=== PATIENT | female | born 1980 | race Caucasian/White ===

== ENCOUNTER 2020-03-27 23:35 | Emergency (ER) | payer SELFPAY ==
[~2020-03-27] VITALS: Ht 162.6 cm; Wt 54.4 kg
[2020-03-27 23:40] VITALS: BP_SYST 119
[2020-03-28 00:18] LABS: BILIRUBIN,URINE NEGATIVE (NEGATIVE); BLOOD, URINE NEGATIVE (NEGATIVE); CLARITY/URINE TURBID (CLEAR); COLOR,URINE ORANGE (YELLOW); GLUCOSE,URINE NEGATIVE (NEGATIVE); KETONES,URINE TRACE (NEGATIVE); LEUKOCYTE ESTERASE ,URINE TRACE (NEGATIVE); NITRITE, URINE POSITIVE (NEGATIVE); PH,URINE 6.5 (5.0-8.0); PROTEIN URINE 1+ (NEGATIVE)
[2020-03-28 00:26] LABS: BACTERIA,URINE MANY /HPF (None Seen); MUCUS,URINE 1+ /LPF (None Seen)
[2020-03-28] MEDS ORDERED: CEPHALEXIN 500 MG CAPSULE PO ONE (01:30)
[2020-03-28 01:31] VITALS: BP_SYST 121
== END 2020-03-28 01:31 | disposition home or self-care (01) ==
LOC: SED 23:35
DX: N39.0 Urinary tract infection, site not specified (principal)
CPT/HCPCS: 81000-TC; 81025; 87086; 99283

== ENCOUNTER 2020-08-26 10:16 | Emergency (ER) | payer SELFPAY ==
[~2020-08-26] VITALS: Ht 160 cm; Wt 59.9 kg
--- NOTE | 2020-08-26 10:30 | NUR ---
Patient triaged and placed in waiting room. VSS and patient appears in no acute distress at this time. Accompanied by self, awaiting available bed, and MD notified of need for MSE.
--- NOTE | 2020-08-26 10:32 | NUR ---
Pt brought by self, A&Ox4, pt presents to ER with upper back pain and L flank pain , skin pink and warm, cap refill <3, VSS
--- NOTE | 2020-08-26 10:55 | NUR ---
Dr Strickland evaluating patient in the tent
[2020-08-26 11:16] VITALS: BP_SYST 131
[2020-08-26 12:19] VITALS: BP_SYST 131
--- NOTE | 2020-08-26 12:19 | NUR ---
Patient given written and verbal discharge instructions and verbalizes understanding. ER MD discussed with patient the results and treatment provided. Patient in stable condition. ID arm band removed. Rx of Cephalexin and Ibuprofen given. Patient educated on pain management and to follow up with PMD. Pain Scale 3/10 tolerable for pt . Opportunity for questions provided and answered. Medication side effect fact sheet provided.
== END 2020-08-26 12:19 | disposition home or self-care (01) ==
LOC: SED 10:16
DX: N12 Tubulo-interstitial nephritis, not specified as acute or chronic (principal)
CPT/HCPCS: 71045; 81002; 81025; 99283

== ENCOUNTER 2020-11-17 14:25 | Emergency (ER) | payer SELFPAY ==
[~2020-11-17] VITALS: Ht 162.6 cm; Wt 52.2 kg
[2020-11-17 14:34] VITALS: BP_SYST 142
[2020-11-17 15:04] LABS: BILIRUBIN,URINE NEGATIVE (NEGATIVE); BLOOD, URINE NEGATIVE (NEGATIVE); CLARITY/URINE CLOUDY (CLEAR); COLOR,URINE YELLOW (YELLOW); GLUCOSE,URINE NEGATIVE (NEGATIVE); KETONES,URINE NEGATIVE (NEGATIVE); LEUKOCYTE ESTERASE ,URINE 1+ (NEGATIVE); NITRITE, URINE NEGATIVE (NEGATIVE); PROTEIN URINE 1+ (NEGATIVE); UROBILINOGEN,URINE 0.2 (0.2-1.0)
[2020-11-17 15:41] LABS: RBC,URINE NONE SEEN /HPF (0-3)
[2020-11-17 15:42] LABS: BACTERIA,URINE MANY /HPF (None Seen); WBC,URINE >100 /HPF (0-3)
[2020-11-17 15:44] LABS: YEAST,URINE None Seen /HPF (None Seen)
[2020-11-17] MEDS ORDERED: cephALEXin 500 MG CAPSULE PO ONE (16:00)
[2020-11-17] MEDS ORDERED: CEPH500C2 PO (16:04)
[2020-11-17 16:13] VITALS: BP_SYST 142
== END 2020-11-17 16:13 | disposition home or self-care (01) ==
LOC: SED 14:25
DX: N39.0 Urinary tract infection, site not specified (principal); F17.200 Nicotine dependence, unspecified, uncomplicated
CPT/HCPCS: 81000-TC; 87086; 99283

== ENCOUNTER 2021-07-18 20:27 | Emergency (ER) | payer OTHER, SELFPAY ==
[~2021-07-18] VITALS: Ht 162.6 cm; Wt 49.9 kg
[~2021-07-18 20:27] MED LIST: CEPH-548 PO
[2021-07-18 20:36] VITALS: BP_SYST 113
--- NOTE | 2021-07-18 21:06 | NUR ---
Note mindy in ED - 07/18/21 at 2110 by [id number] Patient to bed 7 to [facility] for evaluation. Side rails up.
--- NOTE | 2021-07-18 21:08 | NUR ---
Patient to ER bed 7 to gown for evaluation. Side rails up. Report given to Gayle MANSFIELD.
--- NOTE | 2021-07-18 21:09 | NUR ---
Patient BIB by family from home. C/O right flank pain x today. Patient reported, had right flank pain since 0400 AM today , chills and fever. A/O,X4, right flank pain, pain rate 9/10. radiate to right lower abdominal .
--- NOTE | 2021-07-18 22:05 | NUR ---
ER Dr. Macias at bedside examining patient.
[2021-07-18] MEDS ORDERED: ONDANSETRON HCL 4 MG/2 ML VIAL IVP ONE (22:15)
[2021-07-18] MEDS ORDERED: NACL 0.9% 1,000 ML IV ONE (22:15)
[2021-07-18] MEDS ORDERED: MORPHINE 4 MG INJ. 4 MG/ML VIAL IVP ONE (22:15)
--- NOTE | 2021-07-18 22:20 | NUR ---
# 20 gauge angiocath placed to LAC. Use of asceptic technique. Opsite placed over site. Blood return noted. Blood for lab drawn from site. Flushed with 10 cc of normal saline. No evidence of infiltration noted. Patient tolerated well.
[2021-07-18 22:49] LABS: BASOPHILS % (AUTO) 0.1 % (0.0-2.0); HEMATOCRIT 31.9 % (36-48); HEMOGLOBIN 10.5 g/dL (12.0-16.0); LYMPHOCYTES # (AUTO) 0.2 K/uL (1.0-5.5); LYMPHOCYTES % (AUTO) 3.3 % (20.5-51.5); MEAN CORPUSCULAR HEMOGLOBIN 25 pg (27-31); MEAN CORPUSCULAR HGB CONC 33 % (32-36); MEAN CORPUSCULAR VOLUME 77 fL (79.0-98.0); MONOCYTES # (AUTO) 0.1 K/uL (0.0-1.0); MONOCYTES % (AUTO) 1.3 % (1.7-9.3); NEUTROPHILS # (AUTO) 4.5 K/uL (1.8-7.7); NEUTROPHILS % (AUTO) 95.3 % (40.0-70.0); PLATELET COUNT (AUTO) 242 K/uL (130-430); RED BLOOD CELL COUNT(AUTO) 4.14 MIL/uL (4.2-6.2); RED CELL DISTRIBUTION WIDTH 15.4 % (9.0-15.0); WHITE BLOOD COUNT (AUTO) 4.7 K/uL (4.8-10.8)
[2021-07-18 22:51] LABS: CREATININE 0.81 mg/dL (0.55-1.30)
[2021-07-18 22:57] LABS: ALBUMIN 3.5 g/dL (3.4-4.8); TOTAL BILIRUBIN 0.5 mg/dL (0.0-1.0)
--- NOTE | 2021-07-18 23:22 | NUR ---
Returned from radiology, back to [facility].
--- NOTE | 2021-07-19 00:12 | NUR ---
COVID-19 swabs collected and sent to lab.
[2021-07-19] MEDS ORDERED: POTASSIUM CHLORIDE 20 MEQ/PKT PACKET PO ONE (00:15)
[2021-07-19 01:09] LABS: BILIRUBIN,URINE NEGATIVE (NEGATIVE); BLOOD, URINE NEGATIVE (NEGATIVE); COLOR,URINE YELLOW (YELLOW); GLUCOSE,URINE NEGATIVE (NEGATIVE); KETONES,URINE TRACE (NEGATIVE); LEUKOCYTE ESTERASE ,URINE 1+ (NEGATIVE); NITRITE, URINE NEGATIVE (NEGATIVE); PROTEIN URINE 1+ (NEGATIVE); UROBILINOGEN,URINE 0.2 (0.2-1.0)
--- NOTE | 2021-07-19 01:15 | NUR ---
Patient resting quietly. No acute distress noted. Vital signs within normal range.
[2021-07-19 01:20] LABS: CLARITY/URINE SLIGHTLY CLOUDY (CLEAR)
[2021-07-19 01:24] LABS: BACTERIA,URINE FEW /HPF (None Seen)
[2021-07-19] MEDS ORDERED: CEPH-548 PO (01:40)
[2021-07-19] MEDS ORDERED: ONDA-8 TL (01:41)
[2021-07-19] MEDS ORDERED: cephALEXin 500 MG CAPSULE PO ONE (01:45)
[2021-07-19 01:55] VITALS: BP_SYST 113
--- NOTE | 2021-07-19 01:55 | NUR ---
Patient given written and verbal discharge instructions and verbalizes understanding. ER MD discussed with patient the results and treatment provided. Patient in stable condition. ID arm band removed. IV catheter removed intact and dressing applied, no active bleeding. Rx of Zofran and Cephalexin given. Patient educated on pain management and to follow up with PMD. Pain Scale 1/10. Opportunity for questions provided and answered. Medication side effect fact sheet provided.
== END 2021-07-19 01:55 | disposition home or self-care (01) ==
LOC: SED 20:27
DX: N39.0 Urinary tract infection, site not specified (principal); R10.9 Unspecified abdominal pain; E87.6 Hypokalemia; M43.06 Spondylolysis, lumbar region; Z79.899 Other long term (current) drug therapy; Z20.822 Contact with and (suspected) exposure to COVID-19
CPT/HCPCS: 36415; 74176; 76376; 80053; 81000; 81025; 83690; 85025; 87086; 87426; 96361; 96374; 96375; 99284; J2270; J2405; J7030

== ENCOUNTER 2022-09-12 00:27 | Emergency (ER) | payer OTHER ==
[~2022-09-12] VITALS: Ht 162.6 cm; Wt 59.0 kg
[~2022-09-12 00:27] MED LIST changes: +ONDA-8 TL
--- NOTE | 2022-09-12 00:50 | NUR ---
Patient triaged and placed in ED RM 5. VSS and patient appears in no acute distress at this time. MD Troncoso notified of need for MSE. Report given to DONAL Flores.
--- NOTE | 2022-09-12 01:06 | NUR ---
PT BIBS FROM HOME WITH C/O LEFT FLANK PAIN ASSOCIATED WITH LOWER ABD CRAMPING + FOUL ODOR; DENIES VAGINAL DISCHARGE, N/V, FEVER, DYSURIA. URINE COLLECTED AND SENT TO LAB.
[2022-09-12 01:11] LABS: BILIRUBIN,URINE NEGATIVE (NEGATIVE); BLOOD, URINE NEGATIVE (NEGATIVE); CLARITY/URINE CLEAR (CLEAR); COLOR,URINE YELLOW (YELLOW); GLUCOSE,URINE NEGATIVE (NEGATIVE); KETONES,URINE NEGATIVE (NEGATIVE); LEUKOCYTE ESTERASE ,URINE NEGATIVE (NEGATIVE); NITRITE, URINE NEGATIVE (NEGATIVE); PROTEIN URINE NEGATIVE (NEGATIVE); UROBILINOGEN,URINE 0.2 (0.2-1.0)
[2022-09-12 02:38] LABS: BASOPHILS # (AUTO) 0.1 K/uL (0.0-0.2); BASOPHILS % (AUTO) 0.7 % (0.0-2.0); EOSINOPHILS # (AUTO) 0.1 K/uL (0.0-0.4); EOSINOPHILS % (AUTO) 1.3 % (0.0-4.0); HEMATOCRIT 34.9 % (36-48); LYMPHOCYTES # (AUTO) 1.9 K/uL (1.0-5.5); LYMPHOCYTES % (AUTO) 24.7 % (20.5-51.5); MEAN CORPUSCULAR HEMOGLOBIN 23 pg (27-31); MEAN CORPUSCULAR HGB CONC 31 % (32-36); MEAN CORPUSCULAR VOLUME 72 fL (79.0-98.0); MONOCYTES # (AUTO) 0.4 K/uL (0.0-1.0); MONOCYTES % (AUTO) 4.9 % (1.7-9.3); NEUTROPHILS # (AUTO) 5.2 K/uL (1.8-7.7); NEUTROPHILS % (AUTO) 68.4 % (40.0-70.0); PLATELET COUNT (AUTO) 357 K/uL (130-430); RED BLOOD CELL COUNT(AUTO) 4.84 MIL/uL (4.2-6.2); RED CELL DISTRIBUTION WIDTH 18.6 % (9.0-15.0); WHITE BLOOD COUNT (AUTO) 7.7 K/uL (4.8-10.8)
[2022-09-12 02:40] LABS: CALCIUM 9.7 mg/dL (8.4-11.0); CREATININE 0.62 mg/dL (0.55-1.30)
[2022-09-12 02:45] LABS: ALBUMIN 4.2 g/dL (3.4-4.8); TOTAL BILIRUBIN 0.3 mg/dL (0.0-1.0)
--- NOTE | 2022-09-12 03:32 | NUR ---
PATIENT TAKEN TO RADIOLOGY
[2022-09-12 04:05] LABS: HCG,QUAL RESULT NEGATIVE (NEGATIVE)
[2022-09-12] MEDS ORDERED: MILK OF MAGNESIA 30 ML UDC ONE (04:10)
[2022-09-12] MEDS ORDERED: MILK OF MAGNESIA 30 ML UDC PO ONE ×2 (04:15→04:30)
[2022-09-12] MEDS ORDERED: DOCU-144 PO (04:19)
[2022-09-12] MEDS ORDERED: POLY119P2 PO (04:19)
--- NOTE | 2022-09-12 04:40 | NUR ---
Patient given written and verbal discharge instructions and verbalizes understanding. ER MD discussed with patient the results and treatment provided. Patient in stable condition. ID arm band removed. Rx of COLACE & MIRALAX given. Patient educated on pain management and to follow up with PMD. Pain Scale 0/10. Opportunity for questions provided and answered. Medication side effect fact sheet provided.
[2022-09-12 04:41] VITALS: BP_SYST 132
== END 2022-09-12 04:40 | disposition home or self-care (01) ==
LOC: SED 00:27
DX: K59.00 Constipation, unspecified (principal); F17.200 Nicotine dependence, unspecified, uncomplicated; R10.31 Right lower quadrant pain; Z79.899 Other long term (current) drug therapy
CPT/HCPCS: 36415; 74021; 80053; 81003; 81025; 84703; 85025; 99284

== ENCOUNTER 2023-09-06 17:22 | Emergency (ER) | payer OTHER ==
[~2023-09-06] VITALS: Ht 162.6 cm; Wt 56.7 kg
[2023-09-06 17:22] VITALS: BP_SYST 124; PULSE 109; RESP 18; TEMP 98.4; O2SAT 100
[~2023-09-06 17:22] MED LIST changes: +DOCU-144 PO; +POLY119P2 PO
[2023-09-06 18:38] LABS: BASOPHILS % (AUTO) 0.6 % (0.0-2.0); EOSINOPHILS # (AUTO) 0.1 K/uL (0.0-0.4); EOSINOPHILS % (AUTO) 1.5 % (0.0-4.0); HEMATOCRIT 30.6 % (36-48); LYMPHOCYTES # (AUTO) 1.2 K/uL (1.0-5.5); MEAN CORPUSCULAR HEMOGLOBIN 24 pg (27-31); MEAN CORPUSCULAR HGB CONC 33 % (32-36); MEAN CORPUSCULAR VOLUME 73 fL (79.0-98.0); MONOCYTES # (AUTO) 0.3 K/uL (0.0-1.0); MONOCYTES % (AUTO) 4.8 % (1.7-9.3); NEUTROPHILS # (AUTO) 4.8 K/uL (1.8-7.7); NEUTROPHILS % (AUTO) 74.1 % (40.0-70.0); PLATELET COUNT (AUTO) 401 K/uL (130-430); RED BLOOD CELL COUNT(AUTO) 4.22 MIL/uL (4.2-6.2); RED CELL DISTRIBUTION WIDTH 17.2 % (9.0-15.0); WHITE BLOOD COUNT (AUTO) 6.5 K/uL (4.8-10.8)
[2023-09-06 18:42] LABS: CREATININE 0.85 mg/dL (0.55-1.30)
[2023-09-06 18:48] LABS: ALBUMIN 3.8 g/dL (3.4-4.8); TOTAL BILIRUBIN 0.3 mg/dL (0.0-1.0); TOTAL PROTEIN, SERUM 7.5 g/dL (6.4-8.3)
[2023-09-06 19:56] LABS: ANISOCYTOSIS 1+; HYPOCHROMASIA 2+; OVALOCYTES MODERATE
[2023-09-06 20:42] LABS: BILIRUBIN,URINE NEGATIVE (NEGATIVE); BLOOD, URINE NEGATIVE (NEGATIVE); COLOR,URINE YELLOW (YELLOW); GLUCOSE,URINE NEGATIVE (NEGATIVE); KETONES,URINE TRACE (NEGATIVE); LEUKOCYTE ESTERASE ,URINE 1+ (NEGATIVE); NITRITE, URINE POSITIVE (NEGATIVE); PH,URINE 6.5 (5.0-8.0); PROTEIN URINE TRACE (NEGATIVE)
[2023-09-06 20:46] LABS: CLARITY/URINE HAZY (CLEAR)
[2023-09-06 21:24] LABS: BACTERIA,URINE MANY /HPF (None Seen); RBC,URINE 0-3 /HPF (0-3)
[2023-09-06] MEDS ORDERED: KETOROLAC TROMETHAMINE 30 MG VIAL IM ONE (22:15)
[2023-09-06] MEDS ORDERED: cephALEXin 500 MG CAPSULE PO ONE (22:15)
[2023-09-06] MEDS ORDERED: IBUP-1969 PO (22:17)
[2023-09-06] MEDS ORDERED: PHEN-890 PO (22:17)
[2023-09-06] MEDS ORDERED: CEPH-548 PO (22:17)
[2023-09-06] MEDS ORDERED: ACET-2634 PO (22:17)
[2023-09-06 22:56] VITALS: BP_SYST 125; PULSE 92; RESP 20; TEMP 98.2; O2SAT 100
== END 2023-09-06 22:56 | disposition home or self-care (01) ==
LOC: SED 17:22
DX: N39.0 Urinary tract infection, site not specified (principal); R10.2 Pelvic and perineal pain; D64.9 Anemia, unspecified; R11.0 Nausea; R30.0 Dysuria; I10 Essential (primary) hypertension; Z79.899 Other long term (current) drug therapy
CPT/HCPCS: 99284; 76856; 80053; 81001; 83690; 85025; 87086; 36415; 81025; 81000; 81015; J1885

== ENCOUNTER 2024-03-27 02:41 | Emergency (ER) | payer SELFPAY ==
[~2024-03-27] VITALS: Ht 162.6 cm; Wt 56.7 kg
[~2024-03-27 02:41] MED LIST changes: +ACET-2634 PO; +IBUP-1969 PO; +PHEN-890 PO
[2024-03-27 02:53] VITALS: BP_SYST 136; PULSE 91; RESP 19; TEMP 98.1; O2SAT 99
[2024-03-27 04:18] LABS: BILIRUBIN,URINE NEGATIVE (NEGATIVE); BLOOD, URINE NEGATIVE (NEGATIVE); CLARITY/URINE SL CLOUDY (CLEAR); COLOR,URINE YELLOW (YELLOW); GLUCOSE,URINE NEGATIVE (NEGATIVE); KETONES,URINE NEGATIVE (NEGATIVE); LEUKOCYTE ESTERASE ,URINE 1+ (NEGATIVE); NITRITE, URINE POSITIVE (NEGATIVE); PROTEIN URINE TRACE (NEGATIVE); UROBILINOGEN,URINE 0.2 (0.2-1.0)
[2024-03-27 04:24] LABS: BACTERIA,URINE MANY /HPF (None Seen); RBC,URINE 0-3 /HPF (0-3); WBC,URINE >100 /HPF (0-3)
[2024-03-27] MEDS ORDERED: CIPR500T5 PO (04:26)
[2024-03-27] MEDS ORDERED: IBUP-1969 PO (04:26)
[2024-03-27] MEDS: KETOROLAC TROMETHAMINE 60 MG/2 ML VIAL IM ONE (04:36)
[2024-03-27 05:17] VITALS: BP_SYST 134; PULSE 77; RESP 18; TEMP 97.7; O2SAT 98
== END 2024-03-27 05:17 | disposition home or self-care (01) ==
LOC: SED 02:41
DX: N39.0 Urinary tract infection, site not specified (principal); M54.50 Low back pain, unspecified; R11.0 Nausea; F17.200 Nicotine dependence, unspecified, uncomplicated; Z79.899 Other long term (current) drug therapy; Z79.2 Long term (current) use of antibiotics
CPT/HCPCS: 99283; 81001; 87086; 81025; 96372; J1885; 81000; 81015; 87186